=== PATIENT | female | born 1955 | race African-American/Black ===

== ENCOUNTER 2018-08-03 07:33 | Day surgery (SDC) | payer OTHER ==
[2018-08-03] MEDS ORDERED: WATER FOR IRRIG STERILE IR ONE (07:39)
[2018-08-03] MEDS ORDERED: WATER FOR IRRIG STERILE ONE (07:40)
[2018-08-03] MEDS ORDERED: XYLOCAINE 2% INFILTRATI ONE (08:10)
[2018-08-03] MEDS ORDERED: DIPRIVAN 10 MG/ML IV ONE ×2 (08:10→08:11)
[2018-08-03] MEDS ORDERED: NACL 0.9% 1000 ML 1,000 ML IV SCH (09:00)
--- NOTE | 2018-08-03 10:02 | Procedure Note ---
Date of procedure: 08/03/18 Pre-op diagnosis: H/O Colon Polyps/ F/H/O Colon Cancer Post-op diagnosis: other (No Colon Polyps noted/ No Diverticuli noted/ Minor,Internal Hemorrhoid) Procedure: Colonoscopy Anesthesia: MAC Surgeon: TARAH JOSUE Estimated blood loss: none Pathology: none Condition: stable Disposition: same day (Resume home medication and follow up in 1 to 2 weeks ([phone]).)
--- NOTE | 2018-08-03 10:10 | Anesthesia Day of Surgery ---
Anesthesia Day of Surgery - Day of Surgery Patient H&P Reviewed: Yes Patient is NPO: Yes Beta Blockers: No Cardiac Clearance: No Pulmonary Clearance: No Pritesh's Test: N/A
--- NOTE | 2018-08-03 10:14 | Anesthesia Consultation ---
Anesthesia Consult and Med Hx - Airway Anesthetic Teeth Evaluation: Good ROM Head & Neck: Adequate Mental/Hyoid Distance: Adequate Mallampati Class: Class II Intubation Access Assessment: Good - Pulmonary Exam CTA: Yes - Cardiac Exam Cardiac Exam: RRR - Pre-Operative Health Status ASA Pre-Surgery Classification: ASA2 Proposed Anesthetic Plan: General, MAC - Gastrointestinal Hx Gastroesophageal Reflux Disease: Yes - Other Systems Hx Cancer: Yes (H/O Colon Polyps, Family H/O Colon Ca)
--- NOTE | 2018-08-03 10:28 | Operative Report ---
PROCEDURE: Colonoscopy. INDICATIONS: A 62-year-old female, who has a strong family history of cancer. Two of her brothers have had colon cancer. She has a history of colon polyp. Last colonoscopy was 7 years ago. Colonoscopy was done as a repeat colonoscopy as part of colon polyp screening and to see if there was any recurrence of any polyps. DESCRIPTION OF PROCEDURE: Procedure was done after getting informed consent with MAC anesthesia. Initial rectal exam was unremarkable. Instrument was passed through the rectum onto the cecum, which was identified by ileocecal valve and the appendiceal orifice. The terminal ileum was intubated showed normal mucosa. Visualization was fair to good. Cecum, ascending colon, transverse colon, descending colon, and sigmoid showed normal mucosa. There was no evidence of any polyps, colitis or diverticular disease and the rectum showed some minor internal hemorrhoids on the retroverted view. ASSESSMENT: History of colon polyps, strong family history of colon cancer. No colon polyps at present. Minor internal hemorrhoid. No diverticular disease. PLAN: To resume previous medication. Have the patient follow up in the office in 1-2 weeks' time. Nurse Verito Martinez was in the room throughout the entirety of the procedure. JOB# [id number] ANGELIA/ZONIA SELLERS
[2018-08-03 10:49] VITALS: BP 113/71
== END 2018-08-03 10:42 | disposition home or self-care (01) ==
LOC: GIO 07:33
DX: Z12.11 Encounter for screening for malignant neoplasm of colon (principal); K64.8 Other hemorrhoids; K21.9 Gastro-esophageal reflux disease without esophagitis; Z80.0 Family history of malignant neoplasm of digestive organs; Z86.010 Personal history of colon polyps; Z79.899 Other long term (current) drug therapy; Z98.891 History of uterine scar from previous surgery; Z90.710 Acquired absence of both cervix and uterus; Z98.890 Other specified postprocedural states
CPT/HCPCS: 45378; J2704; J7030